=== PATIENT | male | born 1990 | race Caucasian/White ===

== ENCOUNTER → 2017-03-08 | Emergency (ER) | payer OTHER ==
[~2017-03-08] MED LIST: PANTOPRAZOLE SO40 MG PO
--- NOTE | ~2017-03-08 | CR72 ---
[facility] A Service of [facility] RADIOLOGY TEXT RESULTS PATIENT: GIAN LUNA LOCATION: [facility] : 86 UNIT #: [id number] AGE: [address]: SHAWNEE WELLS SEX: M ORDER DR: [id number] [place], [place] [address] [id number] MR#: [id number] Acc #: [id number] NAME: GIAN LUNA : 1990 SEX: M STUDY DATE/TIME: 03/08/2017 18:11 UNIT: [facility] ROOM: STUDY DESCRIPTION: CR Chest Single View Portable Attending Physician: Shawnee Wells Aprn Ordering Physician: Aj Soliman M.D. Primary Care Physician: No Primary Care Physician MEDICAL IMAGING REPORT This report is preliminary unless electronic signature is present EXAM Single view of the chest dated 03/08/2017. COMPARISON None. HISTORY Post-esophageal dilatation today. FINDINGS Frontal single view of the chest was obtained. Frontal view of the chest was obtained and shows both lungs to be clear. The heart is normal in size. The mediastinal contour is normal. No significant bone abnormalities are seen. IMPRESSION Normal frontal view of the chest. Dictated by... Deyvi Lr M.D. THIS IS AN ELECTRONICALLY VERIFIED REPORT Deyvi Lr M.D. at 03/09/2017 2:43 PM CPR/jt TD: 03/09/2017 02:20 JOB #: [id number] MEDICAL IMAGING REPORT [facility] A Service of [facility] RADIOLOGY TEXT RESULTS PATIENT: GIAN LUNA LOCATION: [facility] : 86 UNIT #: [id number] AGE: [address]: SHAWNEE WELLS SEX: M ORDER DR: Page 1 of 1 COPY
--- NOTE | ~2017-03-08 | EKG ---
PATIENT: GIAN LUNA UNIT #: [id number] Ventricular Rate: 72 BPM Atrial Rate: 72 BPM P-R Interval: 154 ms QRS Duration: 96 ms Q-T Interval: 374 ms QTC Calculation(Bezet): 409 ms P [place]: 45 degrees Calculated R [place]: -13 degrees Calculated T [place]: 11 degrees Diagnosis Line: Normal sinus rhythm with sinus arrhythmia Diagnosis Line: Minimal voltage criteria for LVH, may be normal Diagnosis Line: variant Diagnosis Line: Borderline ECG Diagnosis Line: No previous ECGs available Diagnosis Line: Confirmed by ROXIE BURNS MD ([id number]) on Diagnosis Line: 03/09/2017 10:48:06 AM INTERPRETING MD: HAYDE
--- NOTE | ~2017-03-08 | HP ---
Unit #: [id number] #: [id number] Patient: GIAN LUNA [id number] [address] [place], [place] [address] [id number] E MR#: [id number] NAME: GIAN LUNA ROOM: Age: 26 Sex: M Admission Date: 03/08/2017 : 1990 Attending Physician: Aj Soliman M.D. HISTORY AND PHYSICAL REASON FOR CONSULTATION Patient has presented with meat impaction of the esophagus. 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 For the past four or five years, patient has had a history of dysphagia to solids. At times, he has to voluntary put his finger in his throat and induce vomiting in order to get rid of the impacted meat. This has happened on more than several occasions. Patient does not like taking medications, although his aunt gave him [id number] omeprazole which is did not take as he does not like taking it. He has been living with this condition for quite some time. He has no preceding history of retrosternal ascending heartburn or postprandial dyspepsia. Patient has had no other medical problems. PAST SURGICAL HISTORY Herniorrhaphy. MEDICATIONS He is not on any regular medications. ALLERGIES He denies any drug allergies. SOCIAL HISTORY He does not smoke or drink alcohol and lives at home. He works as a [employer] FAMILY HISTORY No family history of colon or pancreatic cancer or liver disease. REVIEW OF SYSTEMS A detailed review of organ systems does not reveal any recent weight loss. No history of fever, chills, or rigors, no history of headaches, seizures, or syncope. He does mention chest pain as a result of pain on swallowing. There is no history of cough, expectoration, or hemoptysis, no history of dysuria, hematuria, or pyuria, and no history of focal seizures or extremity weakness. The rest of the review of organ systems is unremarkable. PHYSICAL EXAMINATION GENERAL: He is alert, oriented, and appears comfortable. VITAL SIGNS: Stable with temperature of 98.4, pulse 78 per minute and regular, respiratory rate is 16, and blood pressure is 136/76. HEENT: He has no pallor, icterus, lymphadenopathy, or peripheral edema. Unit #: [id number] #: [id number] Patient: GIAN LUNA CARDIOVASCULAR: Normal heart sounds. No murmurs. CHEST: Auscultation over the lungs reveals normal breath sounds and good air entry. ABDOMEN: Soft and nontender. Liver and spleen are not palpable and bowel sounds are normal. Patient was given intravenous glucagon twice without any benefit, and thus I was called to see him. CLINICAL IMPRESSION Patient with history of underlying esophageal meat impaction with longstanding history of similar symptoms. An emergent upper endoscopy and disimpaction is indicated which will be scheduled shortly. The pros and cons of the procedure and potential risks and complications including possibility of perforation were discussed with the patient, his aunt and uncle, and his friend. Thank you very much for asking me to see this gentleman. I appreciate the consult. Dictated by Ethel Craig/latesha TD: 03/08/2017 19:35 JOB #: [id number] CC: [facility] HISTORY AND PHYSICAL Page 1 of 1 X Aj Soliman MD HISTORY AND PHYSICAL
--- NOTE | ~2017-03-08 | OR ---
Unit #: [id number] #: [id number] Patient: GIAN LUNA [id number] [place], [place] [address] [id number] E MR#: [id number] NAME: GIAN LUNA ROOM: Date of Procedure: 03/08/2017 Admission Date: 03/08/2017 Surgeon: Aj Soliman M.D. : 1990 Attending Physician: Ravi Millard Aprn Primary Care Physician: Primary Care Physician No OPERATIVE REPORT PREOPERATIVE DIAGNOSIS The patient has presented with meat impaction of the esophagus and mentions significant pain on swallowing. PROCEDURES PERFORMED Upper gastrointestinal endoscopy and dilation as well as upper gastrointestinal endoscopy and biopsy. 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 The stricture was tight enough not to allow the pediatric upper GI scope through it. After a gentle tug, the scope was advanced through the stricture. Rest of the examination up to third part of duodenum was normal. The stricture was then dilated using a 12 to 15 mm balloon up to 14 mm. It is noteworthy the patient was also noted to have a significant mucosal tear in the proximal esophagus, where he must have had foreign body impaction that got dislodged spontaneously. The patient also had changes of feline esophagus with circular ridges and folds as well as long general tears highly suggestive of eosinophilic esophagitis. Appropriate biopsies were obtained. RECOMMENDATIONS The patient will be monitored closely for the next hour to hour and a half before being discharged home. He should stay on pantoprazole 40 mg p.o. daily. A repeat dilation is in order. He will also be given additional information about eosinophilic esophagitis and he may require oral-inhaled steroids. SEDATION USED MAC. DESCRIPTION OF PROCEDURE Following detailed explanation of the potential risks and complications of an upper endoscopy, namely perforation, bleeding, complication related to sedation, the patient was brought to GI lab and laid in the left lateral decubitus position. Lubricated tip of the Olympus video upper endoscope was passed through the bite block into the proximal esophagus under direct vision. The entire esophageal mucosa was examined. The patient did not have any meat impaction, but however did have a very tight stricture in the distal esophagus. It was not possible to negotiate this with the scope. The stricture was dilated using a 12 to 15 mm TTS balloon up to 14 Unit #: [id number] #: [id number] Patient: GIAN LUNA mm. We also observed a large tear to the proximal esophagus, which was spontaneous, must be from the foreign body impaction. The scope was then advanced into the gastric cavity and the latter was insufflated. Mucosa of the fundus, body, and antrum was examined and appeared unremarkable. Pylorus was intubated with visualization of the normal duodenal bulb and second and third part of the duodenum. Upon withdrawal and retroflexion; incisura, cardia, and greater curve was examined and no additional findings were noted. The distal esophageal stricture was then dilated using a 12 to 15 mm TTS balloon up to 14 mm. Biopsies were also obtained from the esophageal mucosa that showed characteristic changes suggestive of eosinophilic esophagitis. The scope was then withdrawn all the way up to pharynx. No additional findings were noted. The patient tolerated the procedure without any postprocedure complications. Dictated by... Ethel Craig/jet TD: 03/08/2017 18:43 JOB #: [id number] OPERATIVE REPORT Page 1 of 1 X Aj Soliman MD X PROCEDURE OPERATIVE NOTE
[2017-03-08 05:57] LABS: POC - CKMB <1.0 ng/mL (0.0-7.9); POC - TROPONIN <0.05 ng/mL (<=0.05)
[2017-03-08 07:24] LABS: POC - CKMB <1.0 ng/mL (0.0-7.9); POC - TROPONIN <0.05 ng/mL (<=0.05)
== END | disposition home or self-care (01) ==
LOC: CED 04:18 → CSUR 10:00
PROVIDERS: Nurse Practitioner Family
DX: K22.2 Esophageal obstruction (principal); T18.108A Unspecified foreign body in esophagus causing other injury, initial encounter; E66.9 Obesity, unspecified; Z68.36 Body mass index [BMI] 36.0-36.9, adult; Z79.899 Other long term (current) drug therapy
CPT/HCPCS: 36415; 71010; 82553; 84484; 88305; 93005; 96374; 96376; 99285; J1610; J2270; J2550

== ENCOUNTER → 2017-05-06 | Day surgery (SDC) | payer OTHER ==
--- NOTE | ~2017-05-06 | OR ---
Unit #: [id number] #: [id number] Patient: GIAN LUNA [id number] [address] [place], [place] [address] [id number] O MR#: [id number] NAME: GIAN LUNA ROOM: Date of Procedure: 05/06/2017 Admission Date: 05/06/2017 Surgeon: Aj Soliman M.D. : 1990 Attending Physician: Aj Soliman M.D. Primary Care Physician: Primary Care Physician No OPERATIVE REPORT PREOPERATIVE DIAGNOSES The patient has presented with history of bolus meat impaction and also has come for elective dilation. PROCEDURES PERFORMED 1. Upper gastrointestinal endoscopy and biopsy. 2. Upper gastrointestinal endoscopy and dilation using a 12 to 15 mm TTS balloon. POSTOPERATIVE DIAGNOSES 1. Mild prepyloric antral gastritis. 2. Rest of the examination up to third part of duodenum was normal. The overall appearances of the esophagus were highly suggestive of underlying eosinophilic esophagitis as the etiology of patient's stricturing and dysphagia. Appropriate biopsies were also obtained from the esophageal mucosa. RECOMMENDATIONS The patient will continue on pantoprazole 40 mg p.o. b.i.d. This has helped him to attain more less normal swallowing, even though his esophagus is considerably stenosed. He will be followed up in the office in 8 weeks' time. SEDATION USED MAC. DESCRIPTION OF PROCEDURE Following detailed explanation of the potential risks and complications of an upper endoscopy, namely perforation, bleeding, and complications related to sedation, the patient was brought to GI lab and laid in the left lateral decubitus position. Lubricated tip of the Olympus video upper endoscope was passed through the bite block into the proximal esophagus under direct vision. The entire esophageal mucosa was examined. The patient was noted to have distal esophageal benign stricture along with considerable linear furrows and circular folds in the distal esophagus highly suggestive of eosinophilic esophagitis. The scope was then advanced into the gastric cavity and a small hiatus hernia was encountered. Mucosa of the fundus, body, and antrum was examined. Mild to moderate prepyloric antral erythema and erythematous streaks were noted indicating antral gastritis. Pylorus was intubated with visualization of the normal duodenal bulb and second and third part of the duodenum. Upon withdrawal and retroflexion; incisura, cardia, and greater curve was Unit #: [id number] #: [id number] Patient: GIAN LUNA examined and a biopsy was obtained from the antrum for CLOtest. The scope was then withdrawn in the distal esophagus. A 12 to 15 mm TTS balloon was passed through the accessory channel of the scope and a step-up dilation of the distal esophageal stricture was done. Effective dilation was achieved. Minimal bleeding was noted from the area which was thoroughly washed with water and good hemostasis was achieved. Biopsies were also obtained from the distal esophagus to look for evidence of eosinophilic esophagitis. The scope was then withdrawn all the way up to pharynx. No additional findings were noted. The patient tolerated the procedure without any postprocedure complications. Dictated by... Ethel Craig/jet TD: 05/06/2017 13:14 JOB #: [id number] OPERATIVE REPORT Page 1 of 1 X Aj Soliman MD X PROCEDURE OPERATIVE NOTE
== END | disposition home or self-care (01) ==
LOC: COPS 08:41
DX: K20.0 Eosinophilic esophagitis (principal); K22.2 Esophageal obstruction; K29.70 Gastritis, unspecified, without bleeding; Z79.899 Other long term (current) drug therapy
CPT/HCPCS: 88305; J2250